=== PATIENT | female | born 2000 ===

== ENCOUNTER 2022-11-30 15:07 | Outpatient (AMB) | payer BC, SELFPAY ==
--- NOTE | 2022-11-30 15:13 | A.OFFVIS_ITS ---
Intake Vital Signs 11/30/22 15:14 Height 5 ft 2 in Weight 156 lb 8 oz BMI 28.6 BP 118/78 Blood Pressure Location Rt brachial Position Sitting Pulse 104 H Pulse Source Pulse Oximeter Pulse Oximetry (%) 98 Oxygen Delivery Method Room Air Intake Visit Reasons: [employer] Hypersomnia - Confirmed Intake Note: Patient presents for hypersomnia. Patient states I can sleep for 20 hours with no problem. Allergies No Known Allergies Allergy (Verified 11/30/22 15:16) HPI HPI Comments History of Present Illness Details 22 y/o female patient presents for new i n-person visit for sleep consultation. Pt reports she sleep too much, she can sleep 16-18 hrs if no one wakes her up. She uses several alarms to wake up in the morning, but still late for her class and work. Pt reports she had a home sleep study done in 2021 and the result was negative for sleep apnea. Denies falling asleep during daytime. Pt has hx of depression, vitamin D and B12 deficiency. Her mood is well managed with lexapro 20 mg. She stopped taking vitamin D and B12. Sleep questionnaire: Have you ever been diagnosed with a sleep disorder? No. Have you ever had a sleep study in the past? Yes, had a home sleep study. Have you ever been treated for a sleep disorder? No. Do you take medications for a sleep disorder? No. Do you snore? Yes. Do you wake up gasping at night? No. Do you have episodes of apneas? No. If yes, are they witnessed? No. Do you have episodes of nocturnal chest pain or dyspnea? No. Do you have difficulty initiating sleep? Sometimes. Do you have difficulty maintaining sleep? No. Do you wake up tired? Yes. Do you have headaches upon awakening? No. Do you wake up with dry mouth or throat? No. Do you have GERD? Yes. Do you have nocturia? No. Do you have nocturnal leg cramps? No. Do you have symptoms of restless legs? No. Do you act out your dreams? No. Sleep hygiene questionnaire: What is your usual sleep routine? Usual bedtime is at 11-12 am ; Usual wake up time is at before noon. Do you take naps? Not usually. Is your sleep environment cool, dark, and quiet? Yes. Do you exercise? not really. Do you take caffeine or other stimulants?Coffee in the morning. Do you use electronics in bed? No. What is your work schedule? 10 am to 1:30 pm She is a college student. Hypersomnolence questionnaire: Do you have daytime tiredness or fatigue? Yes. Do you easily fall asleep when inactive? No. Have you ever had episodes of sudden weakness? No. Have you ever had episodes of sudden weakness associated with strong emotions? No. PFSH Family History (Updated 11/30/22 @ 15:18 by WILLIS Mcgraw) Father HTN (hypertension) Social History (Updated 11/30/22 @ 15:18 by WILLIS Mcgraw) Alcohol intake: current Patient Tobacco Use Status: Never used Tobacco Questionnaire [place] Sleepiness Scale Questions Sitting and reading: moderate chance of dozing Watching TV: moderate chance of dozing Sitting inactive in a theater, movie etc.: slight chance of dozing As a passenger in a car for an hour without break: moderate chance of dozing Lying down in the afternoon when circumstances permit: high chance of dozing Sitting and talking to someone: would never doze Sitting quietly after lunch without alcohol: would never doze In a car, while stopped for a few minutes in the traffic: would never doze ESS < 10: normal, ESS > 12: pathologic: 10 Physical Exam Vital Signs: Last Vital Signs Pulse 104 H 11/30/22 15:14 BP 118/78 11/30/22 15:14 Pulse Ox 98 11/30/22 15:14 Oxygen Delivery Method Room Air 11/30/22 15:14 BMI result Body Mass Index 28.6 Assessment & Plan Assessment & Plan (1) Hypersomnia: Code(s): G47.10 - Hypersomnia, unspecified (2) Fatigue: Code(s): R53.83 - Other fatigue Plan Advised patient to try sleep at 11 pm and no later than 12 am. Try to write sleep log. Will check labs to see any reversible causes for hypersomnia. Pt to call with any worsening concerns or questions. Will consider MSLT. Orders: Orders Complete Blood Count Auto Diff Today E53.8 - Deficiency of other specified B group vitamins, E55.9 - Vitamin D deficiency, unspecified, G47.10 - Hypersomnia, unspecified, R53.83 - Other fatigue Comprehensive Met. Panel Today E53.8 - Deficiency of other specified B group vitamins, E55.9 - Vitamin D deficiency, unspecified, G47.10 - Hypersomnia, unspe cified, R53.83 - Other fatigue Vitamin D 25-OH (D2 and D3) Today E53.8 - Deficiency of other specified B group vitamins, E55.9 - Vitamin D deficiency, unspecified, G47.10 - Hypersomnia, unspecified, R53.83 - Other fatigue TSH reflex Free T4 Today E53.8 - Deficiency of other specified B group vitamins, E55.9 - Vitamin D deficiency, unspecified, G47.10 - Hypersomnia, unspecified, R53.83 - Other fatigue Vitamin B12 and Folate Today E53.8 - Deficiency of other specified B group vitamins, E55.9 - Vitamin D deficiency, unspecified, G47.10 - Hypersomnia, unspecified, R53.83 - Other fatigue Coding Level of Care Code New Pt Level 4 (86497) Diagnoses Hypersomnia G47.10 Fatigue R53.83
[2022-11-30 15:14] VITALS: BP 118/78; PULSE 104; O2SAT 98; BMI 28.6
== END 2022-11-30 16:11 | disposition home or self-care (01) ==
PROVIDERS: Visit Provider Nurse Practitioner Family
DX: G47.10 Hypersomnia, unspecified (principal); R53.83 Other fatigue
CPT/HCPCS: 99204

== ENCOUNTER → 2022-11-30 15:07 | Outpatient (BNVA) | payer BC, SELFPAY | PROVIDERS: Visit Provider Nurse Practitioner Family ==